=== PATIENT | male | born 1990 | race Caucasian/White ===

== ENCOUNTER 2019-04-12 13:19 | Emergency (ER) | payer BC ==
[2019-04-12 13:27] VITALS: BP 127/80; PULSE 68; TEMP 97.5; BMI 21.7
[2019-04-12] MEDS ORDERED: diphenhydrAMINE HCL 25 MG CAPSULE (FP) PO ONE ×2 (13:34→13:49)
[2019-04-12] MEDS ORDERED: DEXAMETHASONE LIQUID 0.5 MG/5 ML 240 ML BULK BOTTLE PO ONE (13:35)
--- NOTE | 2019-04-12 13:54 | PDOC ---
History of Present Illness - General Chief Complaint: Bite Stated Complaint: STING BY A BEE Time Seen by Provider: 04/12/19 13:34 History Source: Patient Exam Limitations: No Limitations - History of Present Illness Initial Comments: 04/12/19 13:58 Patient is here states was bitten 3 times by bees today was concerned as father was concerned about multiple bee stings. Patient has no history of insect ALLERGIES or bee sting ALLERGIES. Denies shortness of breath, swelling to lips tongue or face, states has mild pain at sting sites. Occurred: reports: just prior to arrival Severity: reports: mild Pain Location: reports: lower extremity (right ankle), upper extremity (2 sites at right elbow) Modifying Factors: improves with: None Loss of Consciousness: no loss of consciousness Associated Symptoms (Fall): denies symptoms Past History - Travel Traveled outside of the country in the last 30 days: No Close contact w/someone who was outside of country & ill: No - Past Medical History Allergies/Adverse Reactions: Allergies Allergy/AdvReac Type Severity Reaction Status Date / Time cat dander Allergy Verified 04/12/19 13:27 peanut Allergy Verified 04/12/19 13:27 Home Medications: Ambulatory Orders No Home Medications 0 dose .ROUTE UTDICT 03/22/13 Silver Sulfadiazine 1% Top Cr [Silvadene] 1 applic TP BID #1 jar 03/22/13 COPD: No - Suicide/Smoking/Psychosocial Hx Smoking Status: No Smoking History: Never smoked Number of Cigarettes Smoked Daily: 0 Review of Systems - Review of Systems Able to Perform ROS?: Yes Is the patient limited German proficient: Yes Constitutional: Yes: See HPI. No: Symptoms Reported, Chills, Fever, Loss of Appetite, Malaise HEENTM: No: Symptoms Reported, Throat Swelling, Difficulty Swallowing, Mouth Swelling Respiratory: Yes: See HPI. No: Symptoms reported, Cough, Shortness of Breath, Wheezing ABD/GI: No: Symptoms Reported Integumentary: Yes: Symptoms Reported, See HPI, Erythema (3 sites ) All Other Systems: Reviewed and Negative *Physical Exam - Vital Signs Last Vital Signs Temp Pulse Resp BP Pulse Ox 97.5 F L 68 18 127/80 99 04/12/19 13:23 04/12/19 13:23 04/12/19 13:23 04/12/19 13:23 04/12/19 13:23 - Physical Exam General Appearance: Yes: Nourished, Appropriately Dressed. No: Apparent Distress HEENT: positive: SAVANNA, Normal ENT Inspection, TMs Normal, Pharynx Normal Neck: positive: Supple. negative: Lymphadenopathy (R), Lymphadenopathy (L) Respiratory/Chest: positive: Lungs Clear, Normal Breath Sounds. negative: Wheezing Musculoskeletal: positive: Normal Inspection. negative: Decreased Range of Motion Extremity: positive: Normal Capillary Refill, Normal Inspection, Normal Range of Motion Integumentary: positive: Normal Color, Erythema (distinct sites of erythema, with no retained fragments or stingers noted. Right ankle minimally swollen other 2 sites to right arm without significant inflammation.) Neurologic: positive: sleep lab technologist II-XII NML intact, Fully Oriented, Alert, Normal Mood/ Affect, Normal Response, Motor Strength 5/5 Progress Note - Progress Note Progress Note: Bee stings 3. No history or evidence of ALLERGY reaction. Given 1 Benadryl tablet and instructed to use ice packs and topical creams for relief *DC/Admit/Observation/Transfer Diagnosis at time of Disposition: Bee sting Qualifiers: Encounter type: initial encounter Injury intent: undetermined intent Qualified Code(s): T63.444A - Toxic effect of venom of bees, undetermined, initial encounter - Discharge Dispostion Disposition: HOME Condition at time of disposition: Stable Decision to Admit order: No - Referrals - Patient Instructions Printed Discharge Instructions: DI for Insect Bites and Stings Additional Instructions: Rest, keep cool and dry- avoid strenuous activity or hot /humid environments Less hot showers, no abrasive soaps May use ice packs, cool cloth on itching lesions May use heavy creams like Eucerin or Cetaphil to keep skin moist May apply Aveeno, calamine lotion, [id number] hydrocortisone creams as needed for symptoms May use Benadryl at night for antihistamine, Zyrtec/ Leigha or Claritin for daytime antihistamine use to help with itching A use aloe vera gel to help assist with itching and inflammatory response May use [id number] hydrocortisone cream on all areas except face Try to identify cause for rash and avoid exposures Be sure to use insect sprays/repellent, ones with DEET are the most effective when outdoors Followup with PMD in one week if no resolution Make appointment with power crane operator for evaluation when possible Return to emergency department for worsening swelling, pus or purulent drainage from areas or any changes with swelling to lips, tongue, face or breathing problems from ALLERGIC reaction. - Post Discharge Activity Forms/Work/School Notes: Back to Work
== END 2019-04-12 13:57 | disposition home or self-care (01) ==
LOC: JERFT 13:19
DX: T63.441A Toxic effect of venom of bees, accidental (unintentional), initial encounter (principal); L53.0 Toxic erythema; Y92.89 Other specified places as the place of occurrence of the external cause
CPT/HCPCS: 99281-25